=== PATIENT | female | born 1975 | race Hispanic/Latino ===

== ENCOUNTER 2021-06-21 12:53 | Emergency (ER) | payer SELFPAY ==
--- NOTE | 2021-06-21 13:33 | Emergency Department Report ---
ED Psych HPI - General Chief Complaint: Psych Stated Complaint: Vaginal Bleeding Time Seen by Provider: 06/21/21 13:12 Source: patient Mode of arrival: Ambulatory - History of Present Illness Initial Comments: Patient is 45 years old female with history of schizoaffective disorder. Patient presented to the ER initially stating that she has been having vaginal bleeding on and off for a while and she said that she has miscarriage. Patient stated that she had several miscarriages before. While talking to the patient getting history patient found to be having pressured speech and flight of ideas. Patient jumped from one statement to a number. 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 Patient denied any suicidal homicidal ideation. She denied any auditory hallucination. Patient is very paranoid. MD Complaint: altered mental status -: days(s) - Related Data Previous Rx's Medication Instructions Recorded Last Taken Type Doxepin [SINEquan] 10 mg PO QHS #30 capsule 06/23/21 Unknown Rx OLANZapine [Olanzapine] 5 mg PO DAILY #30 tablet 06/23/21 Unknown Rx Allergies Allergy/AdvReac Type Severity Reaction Status Date / Time divalproex sodium AdvReac Nausea Verified 06/22/21 11:36 [From Depakote] ED Review of Systems ROS: Stated complaint: Vaginal Bleeding Other details as noted in HPI Comment: All other systems reviewed and negative Constitutional: denies: chills, fever ENT: denies: hearing loss, epistaxis, congestion Respiratory: denies: cough, shortness of breath, SOB with exertion Cardiovascular: denies: chest pain, palpitations Gastrointestinal: denies: abdominal pain, nausea, vomiting, diarrhea, constipation, hematemesis, hematochezia Musculoskeletal: denies: back pain Neurological: denies: headache, weakness, numbness, paresthesias, confusion Psychiatric: anxiety. denies: depression, auditory hallucinations, visual hallucinations, homicidal thoughts, suicidal thoughts ED Past Medical Hx - Medications Home Medications: Home Medications Medication Instructions Recorded Confirmed Last Taken Type Doxepin [SINEquan] 10 mg PO QHS #30 capsule 06/23/21 Unknown Rx OLANZapine [Olanzapine] 5 mg PO DAILY #30 tablet 06/23/21 Unknown Rx ED Physical Exam - General Limitations: No Limitations General appearance: alert, in no apparent distress, anxious - Head Head exam: Present: atraumatic, normocephalic, normal inspection - Eye Eye exam: Present: normal appearance - ENT ENT exam: Present: normal exam, normal orophraynx, mucous membranes moist - Neck Neck exam: Present: normal inspection, full ROM. Absent: tenderness, meningismus - Respiratory Respiratory exam: Present: normal lung sounds bilaterally - Cardiovascular Cardiovascular Exam: Present: regular rate, normal rhythm, normal heart sounds - GI/Abdominal GI/Abdominal exam: Present: soft, normal bowel sounds. Absent: distended, tenderness, guarding, rebound, rigid, organomegaly, mass, bruit, pulsatile mass, hernia - Extremities Exam Extremities exam: Present: normal inspection, full ROM, normal capillary refill. Absent: tenderness - Back Exam Back exam: Present: normal inspection, full ROM. Absent: CVA tenderness (R), CVA tenderness (L) - Neurological Exam Neurological exam: Present: alert, oriented X3, CN II-XII intact, normal gait, reflexes normal. Absent: motor sensory deficit - Psychiatric Psychiatric exam: Present: anxious, other (Paranoid and delusional.). Absent: homicidal ideation, suicidal ideation ED Course Vital Signs 06/21/21 06/21/21 06/21/21 13:00 13:48 13:55 Temperature 98.2 F Pulse Rate 84 90 Respiratory 16 20 20 Rate Blood Pressure 156/84 148/82 [Left] O2 Sat by Pulse 99 99 99 Oximetry 06/21/21 06/21/21 06/22/21 17:08 17:30 10:49 Temperature 98.8 F 98.2 F Pulse Rate 88 70 89 Respiratory 18 18 18 Rate Blood Pressure 142/78 92/57 109/67 [Left] O2 Sat by Pulse 98 96 67 L Oximetry 06/22/21 06/23/21 06/23/21 20:32 08:52 09:24 Temperature 98.1 F 97.9 F Pulse Rate 86 98 H Respiratory 18 18 18 Rate Blood Pressure 93/60 123/77 [Left] O2 Sat by Pulse 98 98 99 Oximetry ED Medical Decision Making - Lab Data Result diagrams: 06/21/21 13:21 06/21/21 13:21 - Medical Decision Making Patient is 45 years old female with history of schizoaffective disorder. Patient presented to the ER initially stating that she has been having vaginal bleeding on and off for a while and she said that she has miscarriage. Patient stated that she had several miscarriages before. While talking to the patient getting history patient found to be having pressured speech and flight of ideas. Patient jumped from one statement to a number. 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 Patient denied any suicidal homicidal ideation. She denied any auditory hallucination. Patient is very paranoid. Labs reviewed and is unremarkable. test is negative. Patient is medically cleared to be evaluated by psychiatric. Critical care attestation.: If time is entered above; I have spent that time in minutes in the direct care o f this critically ill patient, excluding procedure time. ED Disposition Clinical Impression: Paranoid schizophrenia Disposition: HOME / SELF CARE / HOMELESS Is pt being admited?: No Condition: Stable Instructions: Managing Schizophrenia Additional Instructions: Professional and Agency Contacts To help [facility](22/02) [place] Crisis Line: Suicide Prevention Line: Crisis Text Line: Text START to [phone] Emergency: 911 Outpatient COMMUNITY Behavioral Health Resources: [facility]: [facility] [address] [place], [place] [address] [facility] - [address] [address] [facility] - [address] [place] [address] Wednesday thru Wednesday - 8am - 5pm [facility] Service Address: [address], [place] [address] [facility] Address: [address] [place] [address] Wednesday thru Wednesday- 7am-2pm [facility] Address: [address] [place] [address] Wednesday thru Wednesday: 8:30AM-5PM Prescriptions: Doxepin [SINEquan] 10 mg PO QHS #30 capsule OLANZapine [Olanzapine] 5 mg PO DAILY #30 tablet Referrals: PRIMARY CARE, [Primary Care Provider] - 3-5 Days
[2021-06-21 13:42] LABS: Basophils % (Auto) 0.4 % (0.0-1.8); Eosinophils # (Auto) 0.1 K/mm3 (0.0-0.4); Eosinophils % (Auto) 1.1 % (0.0-4.3); Hematocrit 43.2 % (30.3-42.9); Hemoglobin 13.7 gm/dl (10.1-14.3); Lymphocytes # (Auto) 1.2 K/mm3 (1.2-5.4); Lymphocytes % (Auto) 18.5 % (13.4-35.0); Mean Corpuscular HGB Conc 32 % (30-34); Mean Corpuscular Volume 92 fl (79-97); Monocytes # (Auto) 0.3 K/mm3 (0.0-0.8); Monocytes % (Auto) 5.3 % (0.0-7.3); Platelet Count 285 K/mm3 (140-440); Red Cell Distribution Width 13.3 % (13.2-15.2)
[2021-06-21 14:04] LABS: BUN/Creatinine Ratio 22; Blood Urea Nitrogen 13 mg/dL (7-17); Calcium 9.3 mg/dL (8.4-10.2); Hemolysis Index 6
[2021-06-21 14:50] LABS: Amphetamine Screen,Urine Negative; Benzodiazepines Screen,Urine Negative; Cannabinoid Screen,Urine Negative; Cocaine Screen,Urine Negative; Methadone Screen,Urine Negative; Opiate Screen,Urine Negative
[2021-06-21 14:52] LABS: Bilirubin,Urine NEG (Negative); Blood,Urine SM (Negative); Color,Urine Yellow (Yellow); Mucus,Urine 2+ /HPF; Protein,Urine <15 mg/dL mg/dL (Negative)
[2021-06-21] MEDS ORDERED: HALOPERIDOL LACTATE 5 MG/1 ML INJ IM PRN (23:12)
[2021-06-22] MEDS: diphenhydrAMINE 50 MG/ML VIAL IM PRN (02:12)
[2021-06-22] MEDS: LORazepam 2 MG/ML VIAL IM PRN (02:12)
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
[2021-06-22] MEDS ORDERED: DOXEPIN 10 MG CAP PO SCH (22:00)
[2021-06-23 08:53] VITALS: BP 123/77
[2021-06-23] MEDS: LORazepam 2 MG/ML VIAL IM PRN (10:21)
[2021-06-23] MEDS: diphenhydrAMINE 50 MG/ML VIAL IM PRN (10:22)
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
--- NOTE | 2021-06-23 12:47 | Emergency Department Report ---
Blank Doc - Documentation Documentation: Patient medically cleared. Patient 1013 discontinued by psych. No events ove rnight. Patient will be discharged with outpatient follow-up
== END 2021-06-23 13:20 | disposition home or self-care (01) ==
LOC: ED 12:53
DX: F20.0 Paranoid schizophrenia (principal); N93.9 Abnormal uterine and vaginal bleeding, unspecified; Z20.822 Contact with and (suspected) exposure to COVID-19
CPT/HCPCS: 36415; 80048; 80307; 81001; 84703; 85025; 96372; 99284; J1200; J2060; U0003; 80320; G0480